=== PATIENT | female | born 1995 | race Caucasian/White ===

== ENCOUNTER 2016-06-13 14:30 | Emergency (ER) | payer OTHER ==
[2016-06-13 14:55] LABS: BILIRUBIN NEGATIVE (NEGATIVE); BLOOD 3+ Ery/uL (NEGATIVE); CLARITY CLEAR (CLEAR); COLOR YELLOW (YELLOW); GLUCOSE (U) NORMAL (NORMAL); KETONE (U) NEGATIVE (NEGATIVE); LEUKOCYTES 1+ Leu/uL (NEGATIVE); NITRITE NEGATIVE (NEGATIVE); PROTEIN NEGATIVE (NEGATIVE); UROBILINOGEN 0.2 mg/dL (0.2-1.0)
[2016-06-13 15:24] LABS: BASOPHIL 0.3 % (0-2); EOSINOPHIL 1.8 % (0-5); HCT 41.3 % (37.0-47.0); HGB 13.8 g/dl (12.5-16.0); LYMPHOCYTE 13.2 % (15-48); MCH 30.3 pg (25.0-31.0); MCHC 33.4 g/dL (32.0-36.0); MCV 90.6 fL (78.0-100.0); MONOCYTE 8.9 % (0-12); MPV 13.1 fL (6.0-9.5); NEUTROPHIL 75.8 % (41-80); PLT 183 K/uL (150-400); RBC 4.56 M/uL (4.20-5.40); RDW 12.9 % (11.5-14.0); WBC 11.6 K/uL (4.0-10.5)
[2016-06-13 15:27] LABS: BACTERIA TRACE
[2016-06-13 15:35] LABS: ALBUMIN 4.3 g/dL (3.5-5.0); BILIRUBIN - TOTAL 0.6 mg/dL (0.1-1.0); CREATININE 0.6 mg/dL (0.5-1.0); GLOBULIN (CALCULATION) 3.3 g/dL (2.2-4.2); POTASSIUM 3.7 mmol/L (3.5-5.1); TOTAL PROTEIN 7.6 g/dL (6.4-8.3)
== END 2016-06-13 18:15 | disposition home or self-care (01) ==
LOC: FER 14:30
PROVIDERS: Emergency Medicine
DX: N30.01 Acute cystitis with hematuria (principal)
CPT/HCPCS: 36415; 80053; 81001; 82150; 83690; 85025; Q9967

== ENCOUNTER 2016-09-29 20:12 | Emergency (ER) | payer OTHER | END 2016-09-29 21:16 | disposition home or self-care (01) | LOC: FER 20:12 | DX: K04.7 Periapical abscess without sinus (principal); F17.210 Nicotine dependence, cigarettes, uncomplicated | CPT/HCPCS: 99282 ==

== ENCOUNTER 2021-08-27 17:32 | Emergency (ER) | payer OTHER ==
[~2021-08-27 17:32] MED LIST: COLACE100 MG PO; IBUPROFEN800 MG PO; PRENATAL FORMU1 EACH PO
[2021-08-27] MEDS ORDERED: CYCLOBENZAPRINE10 MG PO (20:38)
[2021-08-27] MEDS ORDERED: MEDROL 4MG DOSEP4 MG PO (20:38)
== END 2021-08-27 20:50 | disposition home or self-care (01) ==
LOC: FER 17:32
DX: S23.3XXA Sprain of ligaments of thoracic spine, initial encounter (principal); S33.5XXA Sprain of ligaments of lumbar spine, initial encounter; V49.50XA Passenger injured in collision with unspecified motor vehicles in traffic accident, initial encounter; Z28.310 Unvaccinated for COVID-19
CPT/HCPCS: 72128; 72131